=== PATIENT | female | born 1990 | race Asian ===

== ENCOUNTER → 2024-08-02 09:55 | Outpatient (CLI) | payer OTHER ==
[2024-08-02 11:12] LABS: HEMATOCRIT 42.8 % (36.0-45.00); MEAN CELL VOLUME 89.6 fL (80.00-100.00); MEAN CORPUSCULAR HEMOGLOBIN 31.4 pg (27.00-32.0); PLATELET COUNT 325 K/uL (150-450); RED BLOOD COUNT 4.78 M/uL (4.00-6.00); RED CELL DISTRIBUTION WIDTH 12.5 % (11.5-14.5)
[2024-08-05 16:06] LABS: CYCLIC CITRULLINE PEPTIDE 4 units (0-19)
== END | disposition home or self-care (01) ==
LOC: LAB 09:55
DX: M25.541 Pain in joints of right hand (principal)